=== PATIENT | female | born 1955 | race Caucasian/White ===

== ENCOUNTER 2017-07-17 13:53 | Inpatient (IN) | payer BC ==
[~2017-07-17] VITALS: Ht 162.6 cm; Wt 81.5 kg
[2017-07-17 14:30] LABS: HEMATOCRIT 29.7 % (36.0-46.0); HEMOGLOBIN 9.4 G/DL (11.9-15.5); MCHC 31.6 G/DL (30.0-36.0); MCV 91.7 FL (83-99); PLATELET COUNT 196 K/uL (156-360); RBC DIS.WIDTH-CV 18.2 % (11.8-14.6); RBC DIS.WIDTH-SD 60.3 % (39-53); RED BLOOD COUNT 3.24 M/uL (3.80-5.20); WHITE BLOOD COUNT 12.4 K/uL (4.1-10.2)
[2017-07-17 14:38] LABS: ALBUMIN 3.2 g/dL (3.2-4.8)
[2017-07-17 14:39] LABS: CHLORIDE 96 mEq/L (99-109); POTASSIUM 3.8 mEq/L (3.7-5.4); SODIUM 134 mEq/L (136-147)
[2017-07-17 14:41] LABS: GLUCOSE 189 mg/dL (70-99); TOTAL PROTEIN 6.9 g/dL (6.4-8.3)
[2017-07-17 14:43] LABS: TOTAL BILIRUBIN 0.2 mg/dL (0.0-1.0)
[2017-07-17 14:44] LABS: ALKALINE PHOSPHATASE 72 IU/L (3-129)
[2017-07-17 14:45] LABS: CREATININE 0.5 mg/dL (0.6-1.3)
[2017-07-17 14:46] LABS: AST (GOT) 14 IU/L (2-34); UREA NITROGEN (BUN) 10 mg/dL (9-23)
[2017-07-17 14:48] LABS: ALT (GPT) 8 IU/L (3-49)
[2017-07-17 14:50] LABS: GFR ESTIMATE (CALCULATED) > 59 mL/min/
[2017-07-17] MEDS ORDERED: ZOFRAN ODT8 MG PO (17:46)
[2017-07-17] MEDS ORDERED: TYLENOL EXTRA500 MG PO (17:46)
[2017-07-17] MEDS ORDERED: AUGMENTIN875 MG PO (17:47)
[2017-07-17] MEDS ORDERED: COREG3.125 M1 PO (17:48)
[2017-07-17] MEDS ORDERED: [UNRECOGNIZED DRUG - OTHER] PO (17:48)
[2017-07-17] MEDS ORDERED: ACCUPRIL20 MG PO (17:49)
[2017-07-17] MEDS ORDERED: COLACE100 MG PO (17:49)
[2017-07-17] MEDS ORDERED: NEURONTIN300 MG PO (17:49)
[2017-07-17] MEDS ORDERED: HYDROCHLOROTHIA25 MG PO (17:50)
[2017-07-17] MEDS ORDERED: LANTUS 10100 UNITS/ SC (17:51)
[2017-07-17] MEDS ORDERED: MELATONIN3 MG PO (17:52)
[2017-07-17] MEDS ORDERED: MAGOX 400400 MG PO (17:52)
[2017-07-17] MEDS ORDERED: MIRALAX17 GM PO (17:53)
[2017-07-17] MEDS ORDERED: GLUCOPHAGE500 MG PO (17:53)
[2017-07-17] MEDS ORDERED: [UNRECOGNIZED DRUG - OTHER] PO (17:55)
[2017-07-17] MEDS ORDERED: OXYCONTIN60 MG PO (17:55)
[2017-07-17] MEDS ORDERED: DURAGESIC25 MCG TD (17:56)
[2017-07-17] MEDS ORDERED: COMPAZINE10 MG PO (17:56)
[2017-07-17] MEDS ORDERED: FLAGYL500 MG PO (17:58)
[2017-07-17 23:07] VITALS: BP 176/87
[2017-07-18 03:24] VITALS: BP 165/93
[2017-07-18 06:51] LABS: HEMATOCRIT 28.2 % (36.0-46.0); HEMOGLOBIN 8.7 G/DL (11.9-15.5); MCH 28.9 PG (29.0-34.0); MCHC 30.9 G/DL (30.0-36.0); MCV 93.7 FL (83-99); PLATELET COUNT 174 K/uL (156-360); RBC DIS.WIDTH-CV 18.4 % (11.8-14.6); RBC DIS.WIDTH-SD 62.4 % (39-53); RED BLOOD COUNT 3.01 M/uL (3.80-5.20); WHITE BLOOD COUNT 9.7 K/uL (4.1-10.2)
[2017-07-18 07:12] LABS: CHLORIDE 94 MEQ/L (99-109); CREATININE 0.4 MG/DL (0.6-1.3); GFR ESTIMATE (CALCULATED) > 59 mL/min/; GLUCOSE 137 mg/dL (70-99); POTASSIUM 4.1 MEQ/L (3.7-5.4); SODIUM 131 MEQ/L (136-147); UREA NITROGEN (BUN) 6 mg/dL (9-23)
[2017-07-18 08:45] VITALS: BP 152/83
[2017-07-18 11:14] VITALS: BP 150/73
[2017-07-18 15:28] VITALS: BP 144/68
[2017-07-18 19:20] VITALS: BP 153/73
[2017-07-18 23:58] VITALS: BP 148/73
[2017-07-19 15:18] VITALS: BP 131/66
[2017-07-19 16:07] LABS: CREATININE 0.4 MG/DL (0.6-1.3); GFR ESTIMATE (CALCULATED) > 59 mL/min/; UREA NITROGEN (BUN) 7 mg/dL (9-23)
[2017-07-19 19:30] VITALS: BP 120/67
[2017-07-20 03:22] VITALS: BP 149/75
[2017-07-20 09:01] LABS: HEMATOCRIT 28.7 % (36.0-46.0); HEMOGLOBIN 8.8 G/DL (11.9-15.5); MCH 28.9 PG (29.0-34.0); MCHC 30.7 G/DL (30.0-36.0); MCV 94.1 FL (83-99); PLATELET COUNT 174 K/uL (156-360); RBC DIS.WIDTH-CV 18.8 % (11.8-14.6); RBC DIS.WIDTH-SD 63.8 % (39-53); RED BLOOD COUNT 3.05 M/uL (3.80-5.20); WHITE BLOOD COUNT 10.3 K/uL (4.1-10.2)
[2017-07-20 09:39] LABS: CHLORIDE 96 MEQ/L (99-109); CREATININE 0.4 MG/DL (0.6-1.3); GFR ESTIMATE (CALCULATED) > 59 mL/min/; POTASSIUM 4.5 MEQ/L (3.7-5.4); SODIUM 133 MEQ/L (136-147); UREA NITROGEN (BUN) 9 mg/dL (9-23)
[2017-07-20 09:43] LABS: GLUCOSE 334 mg/dL (70-99)
[2017-07-20 13:39] LABS: HEMOGLOBIN A1c (GLYCOHEMOGLOB) 6.2 % (Below 5.7)
[2017-07-20 15:59] VITALS: BP 142/79
[2017-07-20 17:09] VITALS: BP 128/65
[2017-07-20 19:53] VITALS: BP 137/69
[2017-07-20 23:10] VITALS: BP 127/72
[2017-07-21 03:58] VITALS: BP 128/75
[2017-07-21 07:26] VITALS: BP 150/77
[2017-07-21 16:12] VITALS: BP 144/76
[2017-07-21 19:15] VITALS: BP 156/91
[2017-07-21 23:24] VITALS: BP 140/81
[2017-07-22 04:17] VITALS: BP 156/83
[2017-07-22 07:30] VITALS: BP 161/89
[2017-07-22 12:04] VITALS: BP 141/73
[2017-07-22 16:29] VITALS: BP 153/82
[2017-07-22 19:34] VITALS: BP 154/72
[2017-07-22 23:33] VITALS: BP 140/73
[2017-07-23 04:05] VITALS: BP 152/89
[2017-07-23 06:32] LABS: BASOPHIL (%) 0.3 % (0-1); BASOPHIL COUNT 0.1 K/uL (0-0.1); EOSINOPHIL (%) 0 % (0-5); HEMATOCRIT 30.3 % (36.0-46.0); HEMOGLOBIN 9.2 G/DL (11.9-15.5); LYMPHOCYTE (%) 2.2 % (15-42); LYMPHOCYTE COUNT 0.3 K/uL (1.0-2.8); MCH 28.2 PG (29.0-34.0); MCHC 30.4 G/DL (30.0-36.0); MCV 92.9 FL (83-99); MONOCYTE (%) 5.4 % (3-12); MONOCYTE COUNT 0.9 K/uL (0-0.8); NEUTROPHIL (%) 89.1 % (45-76); NRBC (%) 0.3 /100 WBC (0-0); PLATELET COUNT 214 K/uL (156-360); RBC DIS.WIDTH-CV 18.6 % (11.8-14.6); RBC DIS.WIDTH-SD 62.9 % (39-53); RED BLOOD COUNT 3.26 M/uL (3.80-5.20); WHITE BLOOD COUNT 15.7 K/uL (4.1-10.2)
[2017-07-23 06:57] LABS: CHLORIDE 87 MEQ/L (99-109); CREATININE 0.5 MG/DL (0.6-1.3); GFR ESTIMATE (CALCULATED) > 59 mL/min/; GLUCOSE 317 mg/dL (70-99); POTASSIUM 5.3 MEQ/L (3.7-5.4); SODIUM 131 MEQ/L (136-147); UREA NITROGEN (BUN) 16 mg/dL (9-23)
[2017-07-23 08:01] VITALS: BP 140/75
[2017-07-23 12:25] VITALS: BP 142/74
[2017-07-23 16:45] VITALS: BP 132/63
[2017-07-23 19:30] VITALS: BP 141/69
[2017-07-23 23:53] VITALS: BP 123/66
[2017-07-24 04:06] VITALS: BP 130/70
[2017-07-24 07:00] LABS: BASOPHIL (%) 0.2 % (0-1); EOSINOPHIL (%) 0 % (0-5); HEMATOCRIT 29.4 % (36.0-46.0); LYMPHOCYTE (%) 2.5 % (15-42); LYMPHOCYTE COUNT 0.4 K/uL (1.0-2.8); MCH 28.8 PG (29.0-34.0); MCHC 30.6 G/DL (30.0-36.0); MCV 94.2 FL (83-99); MONOCYTE COUNT 0.9 K/uL (0-0.8); NEUTROPHIL (%) 88.3 % (45-76); NEUTROPHIL COUNT 13.7 K/uL (1.8-6.4); NRBC (%) 0.1 /100 WBC (0-0); PLATELET COUNT 192 K/uL (156-360); RBC DIS.WIDTH-CV 19.3 % (11.8-14.6); RBC DIS.WIDTH-SD 63.8 % (39-53); RED BLOOD COUNT 3.12 M/uL (3.80-5.20); WHITE BLOOD COUNT 15.6 K/uL (4.1-10.2)
[2017-07-24 07:29] LABS: CHLORIDE 90 MEQ/L (99-109); CREATININE 0.5 MG/DL (0.6-1.3); GFR ESTIMATE (CALCULATED) > 59 mL/min/; GLUCOSE 288 mg/dL (70-99); POTASSIUM 4.9 MEQ/L (3.7-5.4); SODIUM 130 MEQ/L (136-147); UREA NITROGEN (BUN) 18 mg/dL (9-23)
[2017-07-24 07:50] VITALS: BP 134/75
[2017-07-24 15:45] VITALS: BP 134/70
[2017-07-24 19:17] VITALS: BP 111/60
[2017-07-25] VITALS (7 sets, daily range): BP systolic 100–134; BP diastolic 58–71
[2017-07-25 06:26] LABS: BASOPHIL (%) 0.2 % (0-1); EOSINOPHIL (%) 0 % (0-5); HEMATOCRIT 30.5 % (36.0-46.0); HEMOGLOBIN 9.2 G/DL (11.9-15.5); IMMATURE GRANULOCYTE (%) 4.4 % (0.0-0.7); LYMPHOCYTE (%) 2.6 % (15-42); LYMPHOCYTE COUNT 0.4 K/uL (1.0-2.8); MCH 28.4 PG (29.0-34.0); MCHC 30.2 G/DL (30.0-36.0); MCV 94.1 FL (83-99); MONOCYTE (%) 6.6 % (3-12); MONOCYTE COUNT 0.9 K/uL (0-0.8); NEUTROPHIL (%) 86.2 % (45-76); NEUTROPHIL COUNT 11.4 K/uL (1.8-6.4); PLATELET COUNT 200 K/uL (156-360); RBC DIS.WIDTH-CV 19.5 % (11.8-14.6); RBC DIS.WIDTH-SD 65.4 % (39-53); RED BLOOD COUNT 3.24 M/uL (3.80-5.20); WHITE BLOOD COUNT 13.2 K/uL (4.1-10.2)
[2017-07-25 07:00] LABS: CHLORIDE 92 MEQ/L (99-109); CREATININE 0.4 MG/DL (0.6-1.3); GFR ESTIMATE (CALCULATED) > 59 mL/min/; GLUCOSE 267 mg/dL (70-99); POTASSIUM 4.8 MEQ/L (3.7-5.4); SODIUM 132 MEQ/L (136-147); UREA NITROGEN (BUN) 19 mg/dL (9-23)
[2017-07-26 00:03] VITALS: BP 128/66
[2017-07-26 06:54] LABS: HEMATOCRIT 29.9 % (36.0-46.0); HEMOGLOBIN 9.2 G/DL (11.9-15.5); MCH 28.9 PG (29.0-34.0); MCHC 30.8 G/DL (30.0-36.0); PLATELET COUNT 198 K/uL (156-360); RBC DIS.WIDTH-CV 19.5 % (11.8-14.6); RBC DIS.WIDTH-SD 65.6 % (39-53); RED BLOOD COUNT 3.18 M/uL (3.80-5.20); WHITE BLOOD COUNT 12.1 K/uL (4.1-10.2)
[2017-07-26 07:05] VITALS: BP 124/59
[2017-07-26 07:16] LABS: CHLORIDE 92 MEQ/L (99-109); CREATININE 0.4 MG/DL (0.6-1.3); GFR ESTIMATE (CALCULATED) > 59 mL/min/; GLUCOSE 203 mg/dL (70-99); POTASSIUM 4.5 MEQ/L (3.7-5.4); SODIUM 129 MEQ/L (136-147); UREA NITROGEN (BUN) 19 mg/dL (9-23)
[2017-07-26 07:27] LABS: ABS NEUTROPHIL COUNT 10.8; ANISOCYTOSIS 1+; BAND NEUTROPHILS 0.9 % (0-8.0); EOSINOPHIL ABS CT 0; LYMPHOCYTES 3.5 % (15.0-45.0); METAMYELOCYTES 0.9 %; MICROCYTOSIS 1+; MONOCYTES 5.2 % (0-9.0); MYELOCYTES 0.9 %; NUCLEATED RBC'S 0.9; PLAT.SUFFICIENCY ADEQUATE; POLYCHROMASIA 1+; SEG.NEUTROPHILS 88.6 % (46.0-76.0); SMUDGE CELLS 2.6
[2017-07-26 16:44] VITALS: BP 125/67
[2017-07-26 23:21] VITALS: BP 136/71
[2017-07-27 06:17] LABS: BASOPHIL (%) 0.4 % (0-1); BASOPHIL COUNT 0.1 K/uL (0-0.1); EOSINOPHIL (%) 0 % (0-5); HEMATOCRIT 29.1 % (36.0-46.0); IMMATURE GRANULOCYTE (%) 4.9 % (0.0-0.7); LYMPHOCYTE (%) 2.3 % (15-42); LYMPHOCYTE COUNT 0.3 K/uL (1.0-2.8); MCH 28.8 PG (29.0-34.0); MCHC 30.9 G/DL (30.0-36.0); MCV 93.3 FL (83-99); MONOCYTE (%) 7.9 % (3-12); MONOCYTE COUNT 0.9 K/uL (0-0.8); NEUTROPHIL (%) 84.5 % (45-76); NEUTROPHIL COUNT 10.1 K/uL (1.8-6.4); PLATELET COUNT 215 K/uL (156-360); RBC DIS.WIDTH-CV 19.3 % (11.8-14.6); RBC DIS.WIDTH-SD 63.8 % (39-53); RED BLOOD COUNT 3.12 M/uL (3.80-5.20)
[2017-07-27 06:49] LABS: CHLORIDE 94 MEQ/L (99-109); CREATININE 0.4 MG/DL (0.6-1.3); GFR ESTIMATE (CALCULATED) > 59 mL/min/; GLUCOSE 186 mg/dL (70-99); POTASSIUM 4.8 MEQ/L (3.7-5.4); SODIUM 133 MEQ/L (136-147); UREA NITROGEN (BUN) 19 mg/dL (9-23)
[2017-07-27 08:00] VITALS: BP 122/62
[2017-07-27 10:56] VITALS: BP 00/00
[2017-07-27] MEDS ORDERED: MOVANTIK25 MG PO (12:33)
[2017-07-27] MEDS ORDERED: AUGMENTIN875 MG PO (12:33)
[2017-07-27] MEDS ORDERED: DECADRON4 MG PO (12:33)
[2017-07-27] MEDS ORDERED: LEVEMIR100 UNIT/2 SC (12:33)
[2017-07-27] MEDS ORDERED: FENTANYL1 EAC1 TD (12:33)
[2017-07-27] MEDS ORDERED: MORPHINE SULFAT15 MG PO (12:33)
== END 2017-07-27 18:19 | DRG 543 ==
LOC: EME 13:53 → EDOF 20:10 → 5WEST 20:10 → EDOF 20:10 → ENRESERV 20:14 → 5WEST 22:46 → 5EAST 07-18 13:18 → 5WEST 07-18 13:18 → ENRESERV 07-19 10:38 → CANRESERV 07-19 10:38 → ENRESERV 07-20 00:43 → 5EAST 07-20 16:58
PROVIDERS: Emergency Medicine; Hospitalist; Nurse Practitioner Adult Health; Student in an Organized Health Care Education/Training Program
PROC: DP0C1ZZ Beam Radiation of Other Bone using Photons 1 - 10 MeV (ICD-10-PCS; principal; 2017-07-23)
DX: C79.51 Secondary malignant neoplasm of bone (principal); G95.29 Other cord compression; G89.3 Neoplasm related pain (acute) (chronic); C78.7 Secondary malignant neoplasm of liver and intrahepatic bile duct; C78.5 Secondary malignant neoplasm of large intestine and rectum; C78.6 Secondary malignant neoplasm of retroperitoneum and peritoneum; C78.4 Secondary malignant neoplasm of small intestine; C79.2 Secondary malignant neoplasm of skin; Z85.42 Personal history of malignant neoplasm of other parts of uterus; E11.65 Type 2 diabetes mellitus with hyperglycemia; T38.0X5A Adverse effect of glucocorticoids and synthetic analogues, initial encounter; L03.311 Cellulitis of abdominal wall; K59.03 Drug induced constipation; T40.2X5A Adverse effect of other opioids, initial encounter; I10 Essential (primary) hypertension; M54.41 Lumbago with sciatica, right side; M54.42 Lumbago with sciatica, left side; M89.58 Osteolysis, other site; E66.9 Obesity, unspecified; Z68.30 Body mass index [BMI] 30.0-30.9, adult; Z79.891 Long term (current) use of opiate analgesic; Z79.4 Long term (current) use of insulin; Z98.1 Arthrodesis status
CPT/HCPCS: 72132; 72158; 74177; 77295; 77300; 77334; 77370 XU; 77385; 77412; 80048; 80053; 81003; 82565; 82948; 83036; 84295; 84520; 85025; 85027; 97530 GO; 97530 GP; 99281; 99285; A6214; G0378; J1100; J1170; J1650; J1815; J2270; J2405; J7030; J7040; J7050

== ENCOUNTER 2017-08-12 13:32 | Inpatient (IN) | payer BC ==
[~2017-08-12] VITALS: Ht 162.6 cm; Wt 72.3 kg
[~2017-08-12 13:32] MED LIST: ACCUPRIL20 MG PO; AUGMENTIN875 MG PO; COLACE100 MG PO; COMPAZINE10 MG PO; COREG3.125 M1 PO; DAILY VALUE1 EACH PO; DECADRON4 MG PO; DURAGESIC25 MCG TD; FENTANYL1 EAC1 TD; FLAGYL500 MG PO; GLUCOPHAGE500 MG PO; HYDROCHLOROTHIA25 MG PO; LANTUS 10100 UNITS/ SC; LEVEMIR100 UNIT/2 SC; MAGOX 400400 MG PO; MELATONIN3 MG PO; MIRALAX17 GM PO; MORPHINE SULFAT15 MG PO; MOVANTIK25 MG PO; NEURONTIN300 MG PO; OXYCONTIN60 MG PO; TYLENOL EXTRA500 MG PO; ZOFRAN ODT8 MG PO; [UNRECOGNIZED DRUG - OTHER] PO
[2017-08-12 15:10] LABS: HEMOGLOBIN 10.8 G/DL (11.9-15.5); MCH 30.5 PG (29.0-34.0); MCHC 33.8 G/DL (30.0-36.0); MCV 90.4 FL (83-99); RBC DIS.WIDTH-CV 18.5 % (11.8-14.6); RBC DIS.WIDTH-SD 61.2 % (39-53); RED BLOOD COUNT 3.54 M/uL (3.80-5.20); WHITE BLOOD COUNT 4.2 K/uL (4.1-10.2)
[2017-08-12 15:12] LABS: ALBUMIN 3.1 g/dL (3.2-4.8); CHLORIDE 88 mEq/L (99-109); POTASSIUM 4.6 mEq/L (3.7-5.4); SODIUM 126 mEq/L (136-147)
[2017-08-12 15:14] LABS: TOTAL PROTEIN 6.5 g/dL (6.4-8.3)
[2017-08-12 15:16] LABS: TOTAL BILIRUBIN 0.3 mg/dL (0.0-1.0)
[2017-08-12 15:18] LABS: ALKALINE PHOSPHATASE 87 IU/L (3-129); CREATININE 0.5 mg/dL (0.6-1.3); GFR ESTIMATE (CALCULATED) > 59 mL/min/
[2017-08-12 15:19] LABS: UREA NITROGEN (BUN) 21 mg/dL (9-23)
[2017-08-12 15:20] LABS: AST (GOT) 11 IU/L (2-34)
[2017-08-12 15:21] LABS: ALT (GPT) 23 IU/L (3-49); LIPASE 11 U/L (1.0-51.0)
[2017-08-12 15:33] LABS: GLUCOSE 203 mg/dL (70-99)
[2017-08-12 15:58] LABS: ANISOCYTOSIS 2+; EOSINOPHIL ABS CT 0; MACROCYTES 1+; MICROCYTOSIS 1+; MONOCYTES 4.3 % (0-9.0); PLAT.SUFFICIENCY ADEQUATE; PLATELET CLUMPS PRESENT - PLATELET COUNT APPEARS ADQ.; PLATELET COUNT 105 K/uL (156-360); SEG.NEUTROPHILS 55.7 % (46.0-76.0); SPHEROCYTES 1+
[2017-08-12] MEDS ORDERED: MOVANTIK25 MG PO (17:55)
[2017-08-12] MEDS ORDERED: IRON325 M1 PO (17:55)
[2017-08-12] MEDS ORDERED: OXYCONTIN10 MG PO ×2 (17:56→18:01)
[2017-08-12] MEDS ORDERED: PROBIOTIC1 EAC1 PO (17:57)
[2017-08-12] MEDS ORDERED: FLEET ENEMA-AD118 ML PR (17:59)
[2017-08-12] MEDS ORDERED: DULCOLAX10 MG PR (17:59)
[2017-08-12] MEDS ORDERED: PHILLIPS'400 MG/5 M PO (18:00)
[2017-08-12] MEDS ORDERED: MORPHINE SULFAT15 MG PO (18:01)
[2017-08-12] MEDS ORDERED: TYLENOL REGULA325 MG PO ×2 (18:02→18:03)
[2017-08-12] MEDS ORDERED: DURAGESIC100 MCG TD (21:14)
[2017-08-12 21:35] VITALS: BP 112/65
[2017-08-13] VITALS (7 sets, daily range): BP systolic 105–128; BP diastolic 34–69
[2017-08-13 06:38] LABS: ALBUMIN 2.4 G/DL (3.2-4.8); ALKALINE PHOSPHATASE 67 IU/L (3-129); ALT (GPT) 14 IU/L (3-49); AST (GOT) 8 IU/L (2-34); CHLORIDE 92 MEQ/L (99-109); CREATININE 0.3 MG/DL (0.6-1.3); GFR ESTIMATE (CALCULATED) > 59 mL/min/; GLUCOSE 146 mg/dL (70-99); POTASSIUM 4.2 MEQ/L (3.7-5.4); SODIUM 128 MEQ/L (136-147); TOTAL BILIRUBIN 0.4 MG/DL (0.0-1.0); UREA NITROGEN (BUN) 18 mg/dL (9-23)
[2017-08-13 06:48] LABS: TOTAL PROTEIN 4.4 G/DL (6.4-8.3)
[2017-08-14 04:15] VITALS: BP 136/75
[2017-08-14 05:18] LABS: ALBUMIN 2.3 g/dL (3.2-4.8); CHLORIDE 94 mEq/L (99-109); POTASSIUM 4.1 mEq/L (3.7-5.4); SODIUM 127 mEq/L (136-147)
[2017-08-14 05:21] LABS: GLUCOSE 122 mg/dL (70-99)
[2017-08-14 05:24] LABS: ALKALINE PHOSPHATASE 101 IU/L (3-129); CREATININE 0.4 mg/dL (0.6-1.3); GFR ESTIMATE (CALCULATED) > 59 mL/min/
[2017-08-14 05:25] LABS: TOTAL BILIRUBIN 0.2 mg/dL (0.0-1.0); UREA NITROGEN (BUN) 14 mg/dL (9-23)
[2017-08-14 05:26] LABS: AST (GOT) 12 IU/L (2-34)
[2017-08-14 05:27] LABS: ALT (GPT) 13 IU/L (3-49)
[2017-08-14 05:34] LABS: CREATININE 0.4 mg/dL (0.6-1.3); GFR ESTIMATE (CALCULATED) > 59 mL/min/
[2017-08-14 05:35] LABS: UREA NITROGEN (BUN) 14 mg/dL (9-23)
[2017-08-14 08:17] VITALS: BP 122/70
[2017-08-14 12:24] VITALS: BP 118/63
[2017-08-14 19:02] VITALS: BP 126/74
[2017-08-15 00:55] VITALS: BP 122/75
[2017-08-15 03:14] VITALS: BP 134/88
[2017-08-15 07:21] VITALS: BP 133/71
[2017-08-15 11:05] VITALS: BP 122/71
[2017-08-15 16:47] VITALS: BP 138/70
[2017-08-15] MEDS ORDERED: AUGMENTIN875 MG PO (16:58)
[2017-08-15] MEDS ORDERED: MOVANTIK25 MG PO (17:13)
[2017-08-15] MEDS ORDERED: NOVOLOG 10100 UNITS/ SC (17:13)
[2017-08-15] MEDS ORDERED: MORPHINE SULFAT15 MG PO (17:13)
[2017-08-15] MEDS ORDERED: MELATONIN3 MG PO (17:13)
[2017-08-15] MEDS ORDERED: DAILY VALUE1 EACH PO (17:13)
[2017-08-15] MEDS ORDERED: ZOFRAN ODT8 MG PO (17:13)
[2017-08-15] MEDS ORDERED: GLUCOPHAGE500 MG PO (17:13)
[2017-08-15] MEDS ORDERED: DURAGESIC100 MCG TD (17:13)
[2017-08-15] MEDS ORDERED: IRON325 M1 PO (17:13)
[2017-08-15] MEDS ORDERED: MIRALAX17 GM PO (17:13)
[2017-08-15] MEDS ORDERED: PROBIOTIC1 EAC1 PO (17:13)
[2017-08-15] MEDS ORDERED: TYLENOL REGULA325 MG PO (17:13)
[2017-08-15] MEDS ORDERED: COLACE100 MG PO (17:13)
[2017-08-15] MEDS ORDERED: OXYCONTIN10 MG PO (17:13)
[2017-08-15] MEDS ORDERED: TYLENOL EXTRA500 MG PO (17:13)
[2017-08-15] MEDS ORDERED: NEURONTIN300 MG PO (17:13)
[2017-08-15] MEDS ORDERED: DULCOLAX10 MG PR (17:13)
[2017-08-15] MEDS ORDERED: MAGOX 400400 MG PO (17:13)
[2017-08-15] MEDS ORDERED: LEVEMIR100 UNIT/2 SC (17:13)
[2017-08-15] MEDS ORDERED: DECADRON4 M1 PO (17:13)
== END 2017-08-15 18:30 | disposition hospice, home (50) | DRG 871 ==
LOC: EME 13:32 → EDOF 17:50 → 4EAST 17:50 → ENRESERV 18:04 → 4EAST 20:44
PROVIDERS: Emergency Medicine; Internal Medicine
PROC: 0J9C3ZZ Drainage of Pelvic Region Subcutaneous Tissue and Fascia, Percutaneous Approach (ICD-10-PCS; principal; 2017-08-12)
PROC: 0HD8XZZ Extraction of Buttock Skin, External Approach (ICD-10-PCS; 2017-08-13)
DX: A41.9 Sepsis, unspecified organism (principal); L89.150 Pressure ulcer of sacral region, unstageable; L89.320 Pressure ulcer of left buttock, unstageable; C79.51 Secondary malignant neoplasm of bone; C54.1 Malignant neoplasm of endometrium; K63.1 Perforation of intestine (nontraumatic); K65.1 Peritoneal abscess; G95.29 Other cord compression; E11.622 Type 2 diabetes mellitus with other skin ulcer; I10 Essential (primary) hypertension; D64.9 Anemia, unspecified; E87.1 Hypo-osmolality and hyponatremia; N73.9 Female pelvic inflammatory disease, unspecified; L98.499 Non-pressure chronic ulcer of skin of other sites with unspecified severity; B96.20 Unspecified Escherichia coli [E. coli] as the cause of diseases classified elsewhere; Z90.710 Acquired absence of both cervix and uterus; Z85.42 Personal history of malignant neoplasm of other parts of uterus
CPT/HCPCS: 49406; 72129; 72132; 74176; 74177; 80053; 81003; 82565; 82948; 83605; 83690; 84520; 85025; 87040; 87070; 87075; 87076; 87077; 87185; 87186; 87205; 87801; 99281; 99285; C1769; J1170; J1650; J1815; J2405; J2543; J3010; J3370; J7030; J7050; J8540; S0030